=== PATIENT | female | born 1985 | race African-American/Black ===

== ENCOUNTER 2020-09-03 14:30 | Emergency (ER) | payer MEDICAID ==
[~2020-09-03] VITALS: Ht 162.6 cm; Wt 84.1 kg
[2020-09-03 14:40] VITALS: BP 128/81; TEMP 98
[2020-09-03] MEDS ORDERED: AMOXICILLIN 8751 TAB PO (15:38)
[2020-09-03 15:46] VITALS: PULSE 87
== END 2020-09-03 15:47 | disposition home or self-care (01) ==
LOC: COL.ER 14:30
DX: J32.9 Chronic sinusitis, unspecified (principal); B96.89 Other specified bacterial agents as the cause of diseases classified elsewhere